=== PATIENT | male | born 1935 | race Caucasian/White ===

== ENCOUNTER 2016-10-09 07:45 | Day surgery (SDC) | payer MEDICARE ==
[2016-10-09 09:05] VITALS: BMI 23.3
[2016-10-09] MEDS ORDERED: Propofol 10 mg/ml Inj (20 ML) ONE (10:32)
--- NOTE | 2016-10-09 10:32 | CP.SDSHP ---
Same Day Surgery H & P - History Proposed Procedure: egd. colonoscopy Pre-Op Diagnosis: heartburn. iron def anemia. h/o colon polyps - Previous Medical/Surgical History Cardiac: Hypertension (hypercholesterolemia, Peptic ulcer disease) Neuro: Backaches, Other (DJD, colon polyps, gastritis) Pain: 2.Mild Pain Previous Surgical History: left inguinal hernia repair - Allergies Allergies: Allergies No Known Allergies Allergy (Verified 10/09/16 08:58) - Physical Exam Vital Signs: Vital Signs 10/09/16 09:08 Temperature 97.1 F L Pulse Rate 65 Respiratory 19 Rate Blood Pressure 146/75 O2 Sat by Pulse 99 Oximetry Mental Status: Alert & Oriented x3 Neuro: WNL Heart: WNL Lungs: WNL GI: WNL - Impression Impression: heartburn. iron def anemia. h/o colon polyps Pt. Evaluated Today:Candidate for Anesthesia & Procedure: Yes - Date & Time Date: 10/09/16 Time: 10:32 Short Stay Discharge - Short Stay Discharge Admitting Diagnosis/Reason for Visit: R/2 HEARTBURN, IRON DEFICIENCY, CHANGE IN BOWEL MELGOZA Disposition: HOME/ ROUTINE
[2016-10-09] MEDS ORDERED: Lidocaine Hydrochloride 5 ML INJ ONE (10:33)
[2016-10-09] MEDS ORDERED: Pantoprazole 40 mg EC Tab PO STA (10:33)
[2016-10-09 11:37] VITALS: TEMP 97.5
[2016-10-09 11:39] VITALS: PULSE 60
[2016-10-09 11:54] VITALS: BP 142/66; RESP 11; O2SAT 97
== END 2016-10-09 11:52 | disposition home or self-care (01) ==
LOC: C.ENDO 07:45
PROVIDERS: ATTEND Internal Medicine Gastroenterology
DX: K29.50 Unspecified chronic gastritis without bleeding (principal); K62.1 Rectal polyp; K21.0 Gastro-esophageal reflux disease with esophagitis; K44.9 Diaphragmatic hernia without obstruction or gangrene; K57.30 Diverticulosis of large intestine without perforation or abscess without bleeding; K64.1 Second degree hemorrhoids; D50.9 Iron deficiency anemia, unspecified; I10 Essential (primary) hypertension; E78.00 Pure hypercholesterolemia, unspecified; Z86.010 Personal history of colon polyps
CPT/HCPCS: 43239; 45380; 88305; 88312; 88313; 88342; J2704

== ENCOUNTER 2016-12-24 21:43 | Emergency (ER) | payer MEDICARE ==
[2016-12-24 21:44] VITALS: BMI 23.3
[2016-12-24] MEDS ORDERED: Sodium Chloride 0.9% 1,000 ML IV ONE (22:06)
--- NOTE | 2016-12-24 22:08 | C.PDOC ---
History Of Present Illness <Caprice Chaidez - Last Filed: 12/25/16 00:52> <Eddi Durham - Last Filed: 12/25/16 02:28> 81 year old male presents to the ER with a complaint of a fever, productive cough, sore throat, and chest wall pain for the past 3 days. Denies SOB, nausea , or vomiting. (Caprice Chaidez) History Per: Patient History/Exam Limitations: no limitations Onset/Duration Of Symptoms: Days Current Symptoms Are (Timing): Still Present Associated Symptoms: denies: Nausea, Dyspnea Modifying Factors: None Exacerbating Factors: None Alleviating Factors: None Recent travel outside of the [place]: No <Caprice Chaidez - Last Filed: 12/25/16 00:52> <Eddi Durham - Last Filed: 12/25/16 02:28> Chief Complaint (Nursing): Chest Pain Past Medical History Reviewed: Historical Data, Nursing Documentation, Vital Signs - Medical History PMH: Anemia, Asthma, Colonic Polyps, Emphysema, HTN, Hypothyroidism, Kidney Stones, Chronic Kidney Disease Surgical History: Endoscopy Family History: States: Unknown Family Hx - Social History Hx Alcohol Use: No Hx Substance Use: No <Caprice Chaidez - Last Filed: 12/25/16 00:52> Vital Signs: Last Vital Signs Temp 99 F 12/25/16 02:21 Pulse 97 H 12/25/16 02:21 Resp 20 12/25/16 02:21 BP 123/82 12/25/16 02:21 Pulse Ox 94 L 12/25/16 02:21 - [facility] Procedures OTH & OPEN REPAIR DIRECT INGUINAL HERNIA W GRAFT OR PROSTH (09/01/14) Review Of Systems Constitutional: Positive for: Fever ENT: Positive for: Throat Pain Respiratory: Positive for: Cough, Sputum. Negative for: Shortness of Breath Gastrointestinal: Negative for: Nausea, Vomiting Musculoskeletal: Positive for: Other (Chest wall pain) <Caprice Chaidez - Last Filed: 12/25/16 00:52> Physical Exam - Physical Exam Appears: Non-toxic Skin: Warm, Dry, Other (Flushed face, warm to touch) Head: Atraumatic, Normacephalic Eye(s): bilateral: Normal Inspection Oral Mucosa: Dry Throat: Normal, No Erythema, No Exudate Neck: Normal, Supple Chest: Symmetrical, No Tenderness Cardiovascular: Rhythm Regular, Murmur (Systolic, best heard at the aortic area) Respiratory: Normal Breath Sounds, No Rales, No Rhonchi, No Wheezing Gastrointestinal/Abdominal: Bowel Sounds (Active), Soft, No Tenderness, No Other (Organomegaly) Neurological/Psych: Oriented x3, Normal Speech, Normal Cognition <Caprice Chaidez - Last Filed: 12/25/16 00:52> ED Course And Treatment - Laboratory Results Result Diagrams: 12/24/16 22:25 12/24/16 22:25 ECG: Interpreted By Me, Viewed By Me ECG Rhythm: Sinus Tachycardia Interpretation Of ECmm ST depression V3-V6 and aVL. No old EKG for comparison. O2 Sat by Pulse Oximetry: 97 (Room air) Pulse Ox Interpretation: Normal - Radiology CXR: Interpreted by Me, Viewed By Me CXR Interpretation: Yes: Other (No active pulmonary disease. Cardiac silhouette normal.) <Caprice Chaidez - Last Filed: 12/25/16 00:52> - Laboratory Results Result Diagrams: 12/24/16 22:25 12/24/16 22:25 Progress Note: Pt was discharged by Dr. Chaidez pending IV fluid completion. Pt feels better after IV fluids and wants to go home. Will add an antibiotic to Rx. Reassessment Condition: Improved <Eddi Durham - Last Filed: 12/25/16 02:28> Medical Decision Making <Caprice Chaidez - Last Filed: 12/25/16 00:52> <Eddi Durham - Last Filed: 12/25/16 02:28> Medical Decision Making: Impression: URI vs Pneumonia vs Bronchitis Plan: * EKG * Blood work * CXR * IV fluids * Tylenol Blood results show moderate glucopenia and anemia, not much different from labs on 08/2014, at that time patient was found to have low WBC with predominance of lymphocytes and mild renal insufficiency. Renal numbers are indicative of azotemia. Results also show presence of iron deficiency anemia of long standing. Diagnosis: URI (Caprice Chaidez) Disposition - Disposition Disposition Time: 23:24 <Caprcie Chaidez - Last Filed: 12/25/16 00:52> Counseled Patient/Family Regarding: Studies Performed, Diagnosis, Need For Followup, Rx Given - Disposition Disposition Time: 02:26 <Eddi Durham - Last Filed: 12/25/16 02:28> - Disposition Referrals: Umer Knowles MD [Staff Provider] - Disposition: HOME/ ROUTINE Condition: IMPROVED Additional Instructions: Take cough syrup as directed,lots of fluids,tylenol for fever Prescriptions: Azithromycin [Zithromax] 1 dose PO DAILY #1 pkt Hydrocodone/Chlorpheniramine [Tussionex] 5 ml PO BID #100 ml Instructions: Acute Bronchitis (ED) Forms: [employer] (Brazilian) - Clinical Impression Clinical Impression: Acute bronchitis - Scribe Statement The provider has reviewed the documentation as recorded by the Scribe <Caprice Chaidez - Last Filed: 12/25/16 00:52> <Eddi Durham - Last Filed: 12/25/16 02:28> - Scribe Statement Justin Esteban All medical record entries made by the Scribe were at my direction and personally dictated by me. I have reviewed the chart and agree that the record accurately reflects my personal performance of the history, physical exam, medical decision making, and the department course for this patient. I have also personally directed, reviewed, and agree with the discharge instructions and disposition. (Caprice Chaidez) Physician Patient Turnover Patient Signed Over To: Eddi Durham Handoff Comments: reassess after hydration.Pt has viral URI,nontoxic in appearance <Caprice Chaidez - Last Filed: 12/25/16 00:52>
[2016-12-24 22:30] LABS: BASO % 0.4 % (0.0-2.0); EOS % 1.5 % (0.0-4.0); HEMATOCRIT 31.5 % (35.0-51.0); LYMPH # 1.4 K/uL (1.0-4.3); LYMPH % 53.2 % (20.0-40.0); MEAN CORPUSCULAR HEMOGLOBIN 28.6 pg (27.0-31.0); MEAN CORPUSCULAR HGB CONC 32.9 g/dL (33.0-37.0); MEAN PLATELET VOLUME 8.4 fL (7.2-11.7); MONO # 0.5 K/uL (0.0-0.8); NRBC % 0.1 % (0.0-2.0); RED CELL DISTRIBUTION WIDTH 16.7 % (11.5-14.5); WHITE BLOOD COUNT 2.6 K/uL (4.8-10.8)
[2016-12-24 22:36] LABS: POTASSIUM 3.3 mmol/L (3.6-5.2)
[2016-12-24 22:38] LABS: ALB/GLOB RATIO 0.8 (1.0-2.1); BILIRUBIN,TOTAL 0.8 mg/dL (0.2-1.3); TOTAL PROTEIN 8.4 g/dL (6.3-8.3)
[2016-12-24 22:39] LABS: CALCIUM 7.8 mg/dl (8.6-10.4)
[2016-12-24 22:51] LABS: TROPONIN I 0.043 ng/mL (0.00-0.120)
[2016-12-25] MEDS ORDERED: Sodium Chloride 0.9% 1,000 ML IV ONE (00:31)
[2016-12-25 01:32] LABS: RBC URINE 3 /hpf (0-3); URINE BILIRUBIN NEGATIVE (NEGATIVE); URINE BLOOD 1+ (NEGATIVE); URINE COLOR Straw (YELLOW); URINE GLUCOSE (UA) NORMAL (Normal); URINE KETONE NEGATIVE (NEGATIVE); URINE LEUKOCYTE ESTERASE NEG Leu/uL (Negative); URINE PROTEIN 2+ mg/dL (NEGATIVE); URINE UROBILINOGEN NORMAL mg/dL (0.2-1.0); WBC URINE 1 /hpf (0-5)
[2016-12-25 02:22] VITALS: BP 123/82; PULSE 97; RESP 20; TEMP 99; O2SAT 94
--- NOTE | 2016-12-25 09:15 | RAD ---
PROCEDURE: CHEST RADIOGRAPH, 1 VIEW HISTORY: SOB COMPARISON: 08/29/2014 FINDINGS: LUNGS: Clear. PLEURA: No pneumothorax or pleural fluid seen. CARDIOVASCULAR: Normal. OSSEOUS STRUCTURES: No significant abnormalities. VISUALIZED UPPER ABDOMEN: Normal. OTHER FINDINGS: None. IMPRESSION: No active disease.
--- NOTE | 2016-12-25 23:44 | CARD ---
APPROVED REPORT EKG Measurement Heart [id number] <Conclusion> Sinus tachycardia Possible Left atrial enlargement Lateral ST depression, consider ischemia Abnormal ECG
== END 2016-12-25 02:57 | disposition home or self-care (01) ==
LOC: C.ER 21:43
DX: J20.9 Acute bronchitis, unspecified (principal)
CPT/HCPCS: 71010; 80053; 81001; 83605; 84484; 85025; 87040; 93005; 96360; 96361; 99284; J7040

== ENCOUNTER 2018-07-22 07:44 | Outpatient (CLI) | payer MEDICARE | END 2018-07-22 07:45 | disposition home or self-care (01) | LOC: C.CTH 07:44 | DX: K86.9 Disease of pancreas, unspecified (principal); K74.5 Biliary cirrhosis, unspecified; D64.9 Anemia, unspecified; J06.9 Acute upper respiratory infection, unspecified ==